=== PATIENT | male | born 1955 | race Caucasian/White ===

== ENCOUNTER 2024-03-15 11:45 | Inpatient (IN) | payer MEDICARE, BC ==
[~2024-03-15] VITALS: Ht 185.4 cm; Wt 127.0 kg
[2024-03-15 12:34] LABS: BASOPHILS # (AUTO) 0.1 K/uL (0.0-0.2); BASOPHILS % (AUTO) 0.7 % (0.0-2.0); EOSINOPHILS # (AUTO) 0.2 K/uL (0.0-0.7); EOSINOPHILS % (AUTO) 2.5 % (0.0-6.0); HEMATOCRIT 46 % (39-51); HEMOGLOBIN 14.9 g/dL (13.5-17.5); LYMPHOCYTES # (AUTO) 1.4 K/uL (0.8-4.8); LYMPHOCYTES % (AUTO) 16.7 % (20.0-44.0); MEAN CORPUSCULAR HEMOGLOBIN 28 PG (26.0-33.0); MEAN CORPUSCULAR HGB CONC 32 g/dl (31.0-36.0); MEAN CORPUSCULAR VOLUME 85 fL (80-96); MONOCYTES # (AUTO) 0.7 K/uL (0.1-1.30); MONOCYTES % (AUTO) 8.2 % (2.0-12.0); NEUTROPHILS # (AUTO) 5.9 K/uL (1.8-8.9); NEUTROPHILS % (AUTO) 71.9 % (43.0-81.0); PLATELET COUNT (AUTO) 202 K/uL (150-450); RED BLOOD CELL COUNT(AUTO) 5.41 MIL/uL (4.5-6.0); RED CELL DISTRIBUTION WIDTH 13.5 % (11.5-15.0); WHITE BLOOD COUNT (AUTO) 8.2 K/uL (4.3-11.0)
[2024-03-15 12:52] LABS: CALCIUM, SERUM 9.4 mg/dL (8.5-10.1); CARBON DIOXIDE 27 mmol/L (21-32); CHLORIDE 102 mmol/L (98-107); CREATININE 0.6 mg/dL (0.6-1.3); GLUCOSE 110 mg/dL (74-106); POTASSIUM 4.1 mmol/L (3.5-5.1); SODIUM SERUM 141 mmol/L (136-145); UREA NITROGEN, BLOOD 11 mg/dL (7-18)
[2024-03-15] MEDS ORDERED: METH-649 PO (12:53)
[2024-03-15] MEDS ORDERED: MULT-213 PO (12:53)
[2024-03-15] MEDS ORDERED: ACET-2030 PO (12:53)
[2024-03-15] MEDS ORDERED: HYDR-4077 PO (12:53)
[2024-03-15] MEDS ORDERED: LIDO30AD10 TP (12:53)
[2024-03-15] MEDS ORDERED: METO-357 PO (12:53)
[2024-03-15] MEDS ORDERED: EFIN4SOL TP (12:53)
[2024-03-15] MEDS ORDERED: CLON0.5T PO (12:53)
[2024-03-15] MEDS ORDERED: APIX5TAB PO (12:53)
[2024-03-15] MEDS ORDERED: MORP15TA PO (12:53)
[2024-03-15 13:04] LABS: ALANINE AMINOTRANSFERASE 27 U/L (12-78); ALBUMIN 3.2 g/dL (3.4-5.0); ALKALINE PHOSPHATASE 73 U/L (46-116); ASPARTATE AMINOTRANSFERASE 13 U/L (15-37); BILIRUBIN,DIRECT 0.2 mg/dL (0.0-0.2); BILIRUBIN,TOTAL 0.8 mg/dL (0.2-1.0); NT-PRO BNP 62 pg/mL (0-125); TOTAL PROTEIN, SERUM 7.2 g/dL (6.4-8.2)
[2024-03-15] MEDS ORDERED: KETOROLAC TROMETHAMINE INJ 30 MG/ML VIAL ONE ×2 (13:39)
[2024-03-15] MEDS ORDERED: CYCLOBENZAPRINE 10 MG TABLET ONE (13:40)
[2024-03-15] MEDS: CYCLOBENZAPRINE 10 MG TABLET PO ONE (13:46)
[2024-03-15] MEDS: KETOROLAC TROMETHAMINE INJ 30 MG/ML VIAL IV ONE (13:47)
[2024-03-15] MEDS ORDERED: ACETAMINOPHEN 325 MG TABLET PO PRN (14:30)
[2024-03-15] MEDS ORDERED: ONDANSETRON HCL/PF 4 MG/2 ML VIAL IVP PRN (14:30)
[2024-03-15] MEDS ORDERED: MORPHINE SULFATE INJ 2 MG/ML DISP.SYRIN IV PRN (14:30)
[2024-03-15] MEDS ORDERED: hydrALAZINE HCL IV 20 MG VIAL IV PRN ×2 (14:30→14:45)
[2024-03-15] MEDS ORDERED: clonazePAM 0.5 MG TABLET PO PRN (14:30)
[2024-03-15] MEDS ORDERED: METHOCARBAMOL (750MG) 750 MG TABLET PO PRN ×2 (14:30→14:45)
[2024-03-15] MEDS: hydrALAZINE HCL 50 MG TABLET PO SCH (16:58)
[2024-03-15] MEDS ORDERED: hydrALAZINE HCL 50 MG TABLET PO SCH (17:00)
[2024-03-15] MEDS ORDERED: APIXABAN 5 MG TABLET PO SCH (17:00)
[2024-03-15] MEDS: APIXABAN 5 MG TABLET PO SCH (17:00)
[2024-03-15] MEDS: MORPHINE SULFATE INJ 2 MG/ML DISP.SYRIN IV PRN (17:29)
[2024-03-15 20:00] VITALS: BP 129/81; TEMP 97.7; O2SAT 94
[2024-03-15] MEDS ORDERED: LIDOCAINE 5% (PATCH) 1 EA PATCH TP SCH (21:00)
[2024-03-15] MEDS ORDERED: MORPHINE SULFATE IR 15 MG TABLET PO SCH (21:00)
[2024-03-15] MEDS: MORPHINE SULFATE SR 15 MG TABLET.SA PO SCH (21:08)
[2024-03-15] MEDS: LIDOCAINE 5% (PATCH) 1 EA PATCH TP SCH (21:08)
[2024-03-15] MEDS ORDERED: METOPROLOL SUCCINATE 50 MG TAB.SR.24H PO SCH (22:00)
[2024-03-15] MEDS: METOPROLOL SUCCINATE 50 MG TAB.SR.24H PO SCH (22:03)
[2024-03-16] MEDS: ACETAMINOPHEN 325 MG TABLET PO PRN (06:54)
[2024-03-16 08:27] VITALS: BP 138/62; TEMP 97.9; O2SAT 96
[2024-03-16] MEDS: ONDANSETRON HCL/PF 4 MG/2 ML VIAL IVP PRN (15:11)
[2024-03-16 16:04] VITALS: BP 138/88; TEMP 98.8; O2SAT 93
[2024-03-16] MEDS: HYDROCODONE/APAP 10/325MG TABLET PO PRN (18:17)
[2024-03-16 20:00] VITALS: BP_SYST 131; BP_SYST 138; BP_DIAS 84; BP_DIAS 86; TEMP 98.2; O2SAT 94; O2SAT 98
[2024-03-16] MEDS: LORATADINE 10 MG TABLET PO SCH (20:08)
[2024-03-17 08:00] VITALS: BP 128/66; TEMP 98.2; O2SAT 94
[2024-03-17] MEDS: clonazePAM 0.5 MG TABLET PO PRN (14:21)
[2024-03-17 16:00] VITALS: BP 139/80; TEMP 98.2; O2SAT 94
[2024-03-17] MEDS: DOCUSATE SODIUM 100 MG CAPSULE PO SCH (16:08)
[2024-03-17 20:00] VITALS: BP 131/92; TEMP 98.3; O2SAT 95
[2024-03-18] MEDS: SENNOSIDES 8.6 MG TABLET PO PRN (01:51)
[2024-03-18 08:00] VITALS: BP 136/77; TEMP 98.8; O2SAT 93
[2024-03-18] MEDS ORDERED: DOCU100C36 PO (09:41)
[2024-03-18 12:04] VITALS: BP 136/88
== END 2024-03-18 13:10 | DRG 552 ==
LOC: ER 11:53 → MED 14:53
PROVIDERS: ADMIT Internal Medicine; ATTEND Internal Medicine
DX: M54.9 Dorsalgia, unspecified (principal); I10 Essential (primary) hypertension; E78.5 Hyperlipidemia, unspecified; E66.01 Morbid (severe) obesity due to excess calories; G89.29 Other chronic pain; Z86.711 Personal history of pulmonary embolism; G62.9 Polyneuropathy, unspecified; F32.A Depression, unspecified; F41.9 Anxiety disorder, unspecified; Z98.890 Other specified postprocedural states; N40.0 Benign prostatic hyperplasia without lower urinary tract symptoms; Z66 Do not resuscitate; Z79.01 Long term (current) use of anticoagulants; Z79.899 Other long term (current) drug therapy; R26.9 Unspecified abnormalities of gait and mobility
CPT/HCPCS: 36415; 71045-TC; 80048-TC; 80076-TC; 83880; 84484-TC; 85025-TC; 97110-TC; 97112-TC; 97116-TC; 97530-TC; 97535-TC; G0378; J1885; J2270; J2405